=== PATIENT | male | born 1975 | race Two or more races ===

== ENCOUNTER 2021-08-24 04:25 | Day surgery (SDC) | payer OTHER ==
[2021-08-23 13:43] VITALS: BMI 29.7
[2021-08-24] MEDS ORDERED: LIDOCAINE HCL/PF 2% SDV 5ML VIAL ONE (07:18)
[2021-08-24] MEDS ORDERED: IOHEXOL 180 MG/1 ML ML IJ ONE (10:12)
[2021-08-24] MEDS ORDERED: LIDOCAINE HCL 1% PRESERVATIVE FREE - 30ML VIAL IJ ONE ×2 (10:12→10:15)
[2021-08-24] MEDS ORDERED: BUPIVACAINE HCL/PF 0.25% (2.5MG/ML) 10 ML VIAL IJ ONE ×2 (10:12→10:14)
[2021-08-24] MEDS ORDERED: TRIAMCINOLONE ACET 40MG/1ML VIAL IM ONE ×2 (10:13→10:15)
[2021-08-24 12:07] VITALS: BP 137/83; PULSE 86; TEMP 98.3
== END 2021-08-24 11:00 | disposition home or self-care (01) ==
LOC: JASU-SURG 04:25
PROVIDERS: ATTEND Pain Medicine Pain Medicine
PROC: 3E0U33Z Introduction of Anti-inflammatory into Joints, Percutaneous Approach (ICD-10-PCS; 2021-08-24)
PROC: 3E0U3BZ Introduction of Anesthetic Agent into Joints, Percutaneous Approach (ICD-10-PCS; principal; 2021-08-24 11:30)
DX: M16.12 Unilateral primary osteoarthritis, left hip (principal)
CPT/HCPCS: 76000-TC-FY; J1100